=== PATIENT | male | born 1990 | race African-American/Black ===

== ENCOUNTER 2018-05-18 17:38 | Emergency (ER) | payer MEDICAID ==
[~2018-05-18] VITALS: Ht 188 cm; Wt 100.0 kg
[2018-05-18] MEDS ORDERED: ACETAMINOPHEN 325MG TABLET PO ONE (20:00)
[2018-05-18 20:25] VITALS: BP 121/75
== END 2018-05-18 20:30 | disposition home or self-care (01) ==
LOC: ER 20:17
DX: S46.911A Strain of unspecified muscle, fascia and tendon at shoulder and upper arm level, right arm, initial encounter (principal); Z88.6 Allergy status to analgesic agent; X58.XXXA Exposure to other specified factors, initial encounter; Y93.89 Activity, other specified; Y92.89 Other specified places as the place of occurrence of the external cause; Y99.8 Other external cause status
CPT/HCPCS: 73030; 99284

== ENCOUNTER 2019-04-21 20:35 | Emergency (ER) | payer MEDICAID ==
[~2019-04-21] VITALS: Ht 188 cm; Wt 143.0 kg
[2019-04-22 00:22] VITALS: BP 126/85
[2019-04-22] MEDS ORDERED: ACETAMINOPHEN 325MG TABLET PO ONE (00:30)
== END 2019-04-22 01:58 | disposition home or self-care (01) ==
LOC: ER 20:35
DX: S99.822A Other specified injuries of left foot, initial encounter (principal); Z88.6 Allergy status to analgesic agent; W52.XXXA Crushed, pushed or stepped on by crowd or human stampede, initial encounter; Y93.67 Activity, basketball; Y92.89 Other specified places as the place of occurrence of the external cause; Y99.8 Other external cause status
CPT/HCPCS: 73630; 99283; Z7610